=== PATIENT | male | born 1950 | race Two or more races ===

== ENCOUNTER → 2017-08-12 | Outpatient (CLI) | payer OTHER | END | disposition home or self-care (01) | LOC: RAD 501 14:57 | DX: M25.551 Pain in right hip (principal) ==

== ENCOUNTER 2021-08-07 07:11 | Outpatient (CLI) | payer OTHER | END 2021-08-07 07:19 | disposition home or self-care (01) | LOC: SONOGRAMA 07:11 | PROVIDERS: ATTEND Internal Medicine Hematology & Oncology | DX: D75.1 Secondary polycythemia (principal) ==